=== PATIENT | female | born 1945 | race Caucasian/White ===

== ENCOUNTER → 2018-04-20 | Outpatient (CLI) | payer OTHER | LOC: M.RAD 08:58 | DX: Z12.31 Encounter for screening mammogram for malignant neoplasm of breast (principal); E03.9 Hypothyroidism, unspecified ==

== ENCOUNTER → 2019-04-21 | Outpatient (CLI) | payer OTHER | LOC: M.RAD 08:00 | DX: Z12.31 Encounter for screening mammogram for malignant neoplasm of breast (principal) ==

== ENCOUNTER 2019-11-05 05:56 | Inpatient (IN) | payer OTHER ==
[2019-10-28 09:13] LABS: ABSOLUTE BASOPHILS 0.1 thou/uL (0.0-0.2); ABSOLUTE EOSINOPHILS 0.2 thou/uL (0.0-0.7); ABSOLUTE LYMPHOCYTES 1.6 thou/uL (0.8-5.3); ABSOLUTE MONOCYTES 0.6 thou/uL (0.0-1.2); ABSOLUTE NEUTROPHILS 3.7 thou/uL (1.6-8.1); BASOPHILS 1.3 %; EOSINOPHILS 3.1 %; HEMATOCRIT 43.2 % (37.0-47.0); HEMOGLOBIN 14.9 gm/dL (12.0-15.0); LYMPHOCYTES 25.6 %; MCH 32.3 pg (26.0-34.0); MCHC 34.6 g/dL (28.0-37.0); MCV 93.5 fL (80.0-100.0); MONOCYTES 9.4 %; MPV 8.4 fl. (7.2-11.1); NUCLEATED RBCS 0 /100WBC; PLATELET COUNT* 308 thou/uL (150-400); POLYS 60.6 %; RBC 4.62 mil/uL (4.20-5.00); RDW-CV 13.4 % (10.5-14.5); WBC 6.1 thou/uL (4.0-11.0)
[2019-10-28 09:28] LABS: ALBUMIN 3.9 g/dL (3.4-5.0); CALCIUM 8.8 mg/dL (8.5-10.1); CREATININE 1.1 mg/dL (0.6-1.3); POTASSIUM 3.7 mmol/L (3.5-5.1); TOTAL BILIRUBIN 0.4 mg/dL (<0.1-1.0); TOTAL PROTEIN 7.7 g/dL (6.4-8.2)
[~2019-11-05] VITALS: Ht 165.1 cm; Wt 65.8 kg
[~2019-11-05 05:56] MED LIST: LEVOTHYROXINE88 MCG PO; LIPITOR10 MG PO; OMEPRAZOLE40 MG PO
[2019-11-05 12:00] VITALS: BP 128/64
--- NOTE | 2019-11-05 12:17 | NUR ---
PATIENT ARRIVED TO UNIT FROM PACU AT 1121. ALERT AND ORIENTED X 4. VITAL SIGNS STABLE ON ROOM AIR. CONTINUOUS PULSE OX IN PLACE. ORIENTED PATIENT TO ROOM. CALL LIGHT WITHIN REACH. NURSING WILL CONTINUE TO MONITOR.
--- NOTE | 2019-11-05 14:44 | NUR ---
NO OT REQUIRED AT THIS TIME. WILL DEFER TO PT. PT WILL BE EVALUATED IF REFERRED BY OT
--- NOTE | 2019-11-05 15:15 | OP ---
[address] [address] OPERATIVE REPORT Name: KEVON ANDRE Room: [address] IN .R.#: [id number] Admission: 11/05/19 Attend Phys: Adrian Aponte Discharge: Date of : 47 Report #: [id number] THIS REPORT FOR: //name// cc: Jocelyn Perla Maggie M. DO ~ THIS REPORT FOR: //name// CC: Jocelyn Shearer DATE OF SERVICE: 11/05/2019 PREOPERATIVE DIAGNOSIS: Retained Unispacer hardware of the right knee with tricompartmental osteoarthritis of the right knee. POSTOPERATIVE DIAGNOSIS: Retained Unispacer hardware of the right knee with tricompartmental osteoarthritis of the right knee. SURGERY PERFORMED: Dori Persona cemented 3 component, right total knee arthroplasty with augmented tibial stem in a CPS stabilized knee. SURGEON: Barry Hernandez DO SALES ASSISTANT INSTITUTIONAL SALES: Dr. Solano. SECOND PNEUMATIC JACK OPERATOR: Dr. Mosher. ANESTHESIA: General. It is a spinal anesthetic plus an adductor nerve block. ANTIBIOTICS: Did receive Ancef 1 gram IV piggyback preoperatively. SPECIMENS: She has no specimens.. ESTIMATED BLOOD LOSS: 150 mL. COMPLICATIONS: None. DRAINS: None. GROSS FINDINGS: Prior to surgery, this patient did fail all conservative care measures for previously placed years ago uni arthroplasty device in the right knee region and intraoperative findings correlated with severe eburnated bone throughout all compartments of the knee, even cystic changes on the tibia side, especially medially were noted. The patient post-placement of this arthroplasty demonstrated excellent stable knee through the entire arc of motion. [address] [address] OPERATIVE REPORT Name: KEVON ANDRE Room: [address] IN [facility].#: [id number] Admission: 11/05/19 Attend Phys: Adrian Aponte Discharge: Date of : 47 Report #: [id number] SURGERY IN DETAIL: The patient was taken to the operating room and placed on table, given the benefit of spinal anesthetic and then had a well-padded tourniquet placed high on the right leg. She underwent Betadine prep and scrub and followed with alcohol wash and chlorhexidine prep. At this point in time, the patient then had a sterile draping. At this point in time, a timeout was called and verified everyone in the room for the right knee. At this point in time without a tourniquet, I did not use until cementing technique. I did make a midline incision followed her old incision medially and then curved back to the tibial tubercle with a 10 blade scalpel through skin and subcutaneous tissues followed with a second medial parapatellar capsular incision. Patella everted, knee flexed 90 degrees at unispacer was removed. At this point in time, I did go ahead and stabilize. I did go ahead and remove all excess osteophytes throughout the knee region with a rongeur technique. Surgery continued at this point in time with the distal femoral drill holes in routine fashion at a 5-degree angle. Once the distal femoral bone was removed went down to the tibia side using external guide, secured in place across the ankle and proximally. I measured off the lateral side and then did a second measurement 2 mm below the medial deficient area secured the cutting block in place and that wafer of bone was removed. Surgery continued then at this point in time with doing the extension block in the knee, a 14 looked fairly stable. All pins were now removed and went back to the femoral size and sized her to a #6 appropriately drill holes were made for the right knee and 4-in-1 block was applied, all cuts were made and the bone was removed. Once the femur was prepared, I did go ahead and go back to the tibia size. Once the tibia was sized to a number D, appropriately secured that wafer of block into position with screws went back and put the femoral component into position #6 on the femur. I did that posterior stabilized cut with the reciprocating saw and removed that bone. I did a trial with a 14 and it felt fairly good, potentially could be a 16. I did release the medial collateral ligament side, a little bit with a Andrews elevated up a little bit and 16 actually worked very nice. Once this was accomplished, I did go ahead and go to the patella and used the Dori reamer to ream it off get rid of eburnated bone, sized it to 32 appropriately drill holes were placed, patellar trial was placed and tracked well. Surgery now continued with Esmarch in this extremity and inflating tourniquet 300 mmHg for cement technique. Secondary to the cystic changes which I curetted out on the tibia size and once again passed the hard sclerotic bone and bone felt soft, so I elected to put a little augment on the tibia stem. Surgery now continued with appropriately removing the femoral component and the tibia polyethylene trial did go ahead and reamed the tibia and a cruciform cut was made and then removed the baseplate. Her hard bone everywhere that was noted to be extra hard, I did drill it to give her a little extra cementing purchase for about 3-4 mm in depth. Did pulsatile lavage irrigation across the entire knee, preparing it for 1 stage cement. I did cement in the tibia or I did a cement in that stem, tibial component, removed all excess cement, now cemented in the femoral component, removed the excess femur there, compressed her with a 16 mm polyethylene and the patella was cemented in place as well[place] [address] OPERATIVE REPORT Name: THAIKEVON L Room: [address] IN [facility].#: [id number] Admission: 11/05/19 Attend Phys: Adrian Aponte Discharge: Date of : 47 Report #: [id number] extension until cement had hardened. Surgery continued doing one more trial with that 16 PS polyethylene and felt that just a slight amount of laxity, so I elected actually to put a constraint knee. At this point in time, I copiously irrigated one more time, did a TXA solution to the knee region as well. I clipped in the 16 mm constrained polyethylene into the tibia tray. It tracked very nicely and was very stable as I would expect. Surgery continued now with releasing that tourniquet. Hemostasis was easily maintained as we maintained it throughout the surgery. I closed the capsule with #1 Vicryl and 1 Ticron figure-of-8 fashion, subcutaneous tissues with 2-0 Monocryl and a chlorhexidine prep the knee one more time prior to running the side effects and then a Mepilex dressing was applied. The patient was transferred off the table, taken to recovery in stable condition. I attest I was present for all critical aspects of surgery. Needle, instrument, sponge counts correct. <ELECTRONICALLY SIGNED> By: Barry Hernandez DO 11/05/19 1515 [id number] Hernandez DO /nt
--- NOTE | 2019-11-05 15:51 | NUR ---
CM ASSESSMENT: PT LIVES AT HOME WITH IN [place]. INDEPENDENT WITH ADLS. PT HAS A WALKER FOR USE POST OP. PT HAS NO PREFERENCE OF [employer]. WILL CALLIN RX AND AND CHECK DICKENS OF ELIQUIS
[2019-11-05 16:30] VITALS: BP 140/84
--- NOTE | 2019-11-05 18:44 | NUR ---
PATIENT ALERT AND ORIENTED X 4. VITAL SIGNS STABLE ON ROOM AIR. UP WITH ASSISTANCE, GAIT BELT, AND WALKER TO THE BEDSIDE COMODE. IV PATENT WITH FLUIDS INFUSING. DENIES NAUSEA AT THIS TIME. PAIN BEING MANAGED WITH PO MEDICATION. UP WITH THERAPY AND TO CHAIR FOR MEALS. MARIUSZ HOSE AND SCD'S IN PLACE BILATERALLY. DRESSING TO RIGHT KNEE CLEAN/DRY/INTACT. HOURLY ROUNDS MAINTAINED THROUGHOUT THE SHIFT. CALL LIGHT WITHIN REACH. NURSING WILL CONTINUE TO MONITOR.
[2019-11-05 20:45] VITALS: BP 122/70
[2019-11-06] VITALS (7 sets, daily range): BP systolic 107–132; BP diastolic 64–74
[2019-11-06 03:30] LABS: HEMATOCRIT 33.6 % (37.0-47.0); HEMOGLOBIN 11.5 gm/dL (12.0-15.0)
--- NOTE | 2019-11-06 05:29 | NUR ---
PATIENT REPORTED SOME PAIN AT 710 DID TAKE PAIN MEDS SEVERAL TIMES THROUGH SHIFT. SHE WAS ABLE TO AMBULATE WELL TO THE RESTROOM. POD#1 FRIDAY. MEPALEX DRESSING C/D/I. PLAN TO POSSIBLY D/C TODAY. WILL CONTINUE TO FOLLOW PLAN OF CARE.
[2019-11-06] MEDS ORDERED: OXYCODONE HCL 55 MG PO (09:01)
[2019-11-06] MEDS ORDERED: TRAMADOL 50 MG50 MG PO (09:02)
[2019-11-06] MEDS ORDERED: ELIQUIS2.5 MG PO (09:02)
--- NOTE | 2019-11-06 12:49 | NUR ---
information faxed to [facility]. paged 3x. received call back. awaiting response from intake re: acceptance.
[2019-11-06] MEDS ORDERED: ASPIRIN325 PO (15:34)
--- NOTE | 2019-11-06 16:24 | NUR ---
PT GIVEN DISCHARGE INFORMATION,CARE NOTES, AND PRESCRIPTIONS. IV REMOVED. PT REQUESTED TO LEAVE WITHOUT SETTING UP HOME HEALTH. CASE MANAGEMENT NOTIFIED. PT BELONGINGS GATHERED. PT LEFT VIA WHEELCHAIR WITH NURSING STAFF TO HOME. FALL RISK PRECAUTIONS IN PLACE. HOURLY ROUNDING COMPLETED.
--- NOTE | 2019-11-10 13:43 | EKG ---
[place] [address] ELECTROCARDIOGRAM REPORT Name: KEVON ANDRE Room: [address]#: [id number] Admission: 11/05/19 Attend Phys: Adrian Aponte Discharge: 11/06/19 Date of : 47 Report #: [id number] THIS REPORT FOR: //name// [facility] Test Date: 2019-10-28 Test Time: 09:28:57 Pat Name: KEVON ANDRE Department: Room: Gender: F Maintenance Aide: : 1945 Requested By: Barry Hernandez Order Number: [id number] Eric MD: Joaquin Joshua Measurements Intervals Una Rate: 83 P: 28 SD: 162 QRS: 16 QRSD: 85 T: 61 QT: 382 QTc: 449 Interpretive Statements Sinus rhythm Compared to ECG 07/30/2006 15:32:58 No significant changes Electronically Signed On 10-28-2019 13:16:12 BIKE ASSEMBLER by Joaquin Joshua [email or web address] <ELECTRONICALLY SIGNED> By: Joaquin Jsohua MD, [facility] 10/28/19 1316 7 7 Joaquin Joshua MD, FACC /EPI
== END 2019-11-06 16:27 | disposition home health service (06) | DRG 468 ==
LOC: M.TBA 05:56 → M.PRE 06:57 → M.TBA 09:39 → M.ORTHSURG 09:39 → M.PRE 14:15 → M.ORTHSURG 11-06 16:27
PROVIDERS: Orthopaedic Surgery; ADMIT Internal Medicine
DX: T84.89XA Other specified complication of internal orthopedic prosthetic devices, implants and grafts, initial encounter (principal); M17.11 Unilateral primary osteoarthritis, right knee; E03.9 Hypothyroidism, unspecified; Z96.652 Presence of left artificial knee joint; K21.9 Gastro-esophageal reflux disease without esophagitis; E78.00 Pure hypercholesterolemia, unspecified; E04.9 Nontoxic goiter, unspecified; Y83.1 Surgical operation with implant of artificial internal device as the cause of abnormal reaction of the patient, or of later complication, without mention of misadventure at the time of the procedure; T84.84XA Pain due to internal orthopedic prosthetic devices, implants and grafts, initial encounter; Y92.89 Other specified places as the place of occurrence of the external cause; Z88.5 Allergy status to narcotic agent; Z72.89 Other problems related to lifestyle; Z90.49 Acquired absence of other specified parts of digestive tract; Z79.899 Other long term (current) drug therapy

== ENCOUNTER → 2020-04-24 | Outpatient (CLI) | payer OTHER ==
[~2020-04-24] MED LIST changes: +ASPIRIN325 PO; +ELIQUIS2.5 MG PO; +OXYCODONE HCL 55 MG PO; +TRAMADOL 50 MG50 MG PO
== END ==
LOC: M.RAD 07:00
PROVIDERS: ATTEND Family Medicine
DX: Z12.31 Encounter for screening mammogram for malignant neoplasm of breast (principal)

== ENCOUNTER → 2021-04-11 | Outpatient (CLI) | payer OTHER | LOC: M.RAD 09:00 | PROVIDERS: ATTEND Family Medicine | DX: Z12.31 Encounter for screening mammogram for malignant neoplasm of breast (principal); M85.89 Other specified disorders of bone density and structure, multiple sites; M81.0 Age-related osteoporosis without current pathological fracture; N64.89 Other specified disorders of breast ==